=== PATIENT | female | born 1990 | race Caucasian/White ===

== ENCOUNTER 2023-11-27 20:11 | Inpatient (IN) | payer MEDICAID, SELFPAY ==
[2023-11-27 20:18] VITALS: BP 140/82; PULSE 120; O2SAT 95
--- NOTE | 2023-11-27 20:33 | ED_ITS ---
HPI - General Adult General Chief complaint: Psychiatric Symptoms Stated complaint: behavioral Time Seen by Provider: 11/27/23 20:24 History of Present Illness HPI narrative: The patient is a 32-year-old female who was brought to the hospital after running out of gas. Apparently she was driving between [place] and [facility] when she ran out of gas. She was apparently found walking on the highway. State police felt that she seemed very paranoid and had her brought to the hospital. The patient reports that she had a psychiatric hospitalization at [facility] in [facility] about a year ago for similar behaviors. She says she has been on clonidine and gabapentin and propranolol in the past. The patient says that she grew up in [facility] in [place]. Recently she has been living in [place]. She says that she was thinking about moving back to [facility]. When I asked her where she was planning on staying in [facility] she told me that she was planning on staying in [facility]. Apparently when she was speaking to the state police on the highway she told the state assessed properties director that she believes her family was being held hostage. I was later able to speak to the patient's father, Darvin. He tells me that patient had recently been in [facility] visiting him and his . He tells me that he believes the patient has been in a psychiatric crisis for at least a month. He says that she lost a job in [facility] and has been anxious and paranoid. Apparently while in [place] she wanted news about her brother because she was worried her brother was . Apparently her brother is in [place] and they communicated with by phone in video. She apparently insisted that what she was seeing was generated by artificial intelligence. The patient's parents have been encouraging her to seek psychiatric care over the last several weeks and considered trying to get her to an emergency room in [place] over the weekend not go voluntarily and they had been told that unless she was suicidal or homicidal she could not be brought there against her will. The parents tell me that the patient has crushed and snorted Adderall in the past. Related Data Allergies Allergy/AdvReac Type Severity Reaction Status Date / Time No Known Allergies Allergy Verified 11/27/23 20:46 Review of Systems Review of Systems: Yes all other systems are reviewed and are negative Physical Exam ED Vital Signs: Vital Signs - 24 hr 11/27/23 20:46 Temperature 99.3 F Pulse Rate 113 H Respiratory Rate 18 Blood Pressure 148/91 H Pulse Oximetry 95 Oxygen Delivery Method Room Air BMI result Body Mass Index 26.6 Const Other: The patient is awake and alert. She has a very anxious, almost paranoid affect. HENMT Other: Face is symmetrical. Mucous membranes are moist Eyes Other: Pupils are round equal, conjunctivae are clear Neck Other: Moving her neck normally, no neck swelling, no JVD Resp Effort & Inspection: normal respiratory effort Auscultation: clear to auscultation bilaterally Cardio Rate: regular rate Rhythm: regular rhythm Heart sounds: S1 normal heart sound present and S2 normal heart sound present GI Other: Abdomen is soft and nontender Skin Other: Skin is dry and unremarkable. Neuro Other: The patient is awake and alert and fairly well oriented. Her cranial nerves are intact. She moves her extremities with normal strength and coordination. Her gait is steady. She is grossly neurologically intact. Extrem Other: No peripheral edema, no calf swelling or tenderness Psych Other: The patient is reasonably well-kempt. She has an extremely anxious affect. Medications Administered Discontinued Medications Generic Name Dose Route Start Last Admin Trade Name Freq PRN Reason Stop Dose Admin Clonidine HCl 0.1 mg 11/27/23 20:33 11/27/23 20:50 Clonidine Hcl 0.1 Mg Tablet PO 11/27/23 20:34 0.1 mg ONCE ONE Administration Protocol Gabapentin 300 mg 11/27/23 20:33 11/27/23 20:50 Gabapentin 300 Mg Capsule PO 11/27/23 20:34 300 mg ONCE ONE Administration Medical Decision Making Medical Decision Making [facility] Narrative: The patient is a 32-year-old female with a history of a previous psychiatric hospitalization, I believe at [facility] in [facility]. She says that she has been prescribed propranolol, gabapentin, and clonidine in the past. She also says that she has been on other medications that have made her gain weight. She was brought to the hospital after being found on the highway having run out of gas while driving between [place] and [facility]. She was apparently quite paranoid with state troopers, talking about her family being held hostage. I suspect that she has some underlying psychotic disorder. She seems quite disorganized. I spoke with the patient's parents who live in [facility]. They have been very concerned about her mental health and are very eager that she receive mental health treatment. They are aware that the patient has been resistant to receive mental health treatment and they say that the patient has a history of pulling herself together sufficiently to give the appearance of more stability than she really has. The patient was brought here on a section 12 and will be maintained on a section 12 for a care team evaluation. Medical testing is still underway. I do not have a high suspicion for any acute medical process. I will be signing the patient out to the oncoming physicians and placing the patient in physician observation care. Lab Data Labs: Lab Results 11/27/23 Range/Units 21:07 Urine Color Yellow Urine Appearance Cloudy Urine pH 5.5 (5.0-9.0) Ur Specific [place] 1.010 (1.005-1.025) Urine Protein 30 (1+) H (Neg-Trace) mg/dL Urine Glucose (UA) Negative (Negative) mg/dL Urine Ketones Trace (Negative) mg/dL Urine Blood Large (3+) H (Negative) Urine Nitrite Negative (Negative) Ur Leukocyte Esterase Small (1+) H (Negative) Urine Test NEGATIVE (NEGATIVE) Urine Opiates Screen Not Detected (Not Detect) Urine Fentanyl Screen Not Detected (Not Detect) Ur Barbiturates Screen Not Detected (Not Detect) Ur Phencyclidine Scrn Not Detected (Not Detect) Ur Amphetamines Screen POSITIVE H (Not Detect) U Benzodiazepines Scrn Not Detected (Not Detect) Urine Cocaine Screen Not Detected (Not Detect) U Marijuana (THC) Screen POSITIVE H (Not Detect) Discharge Plan Discharge Clinical Impression: Psychotic disorder Patient Disposition: Still a Patient Interventions: [place]-Suicide Risk Severity Scale Last Done: 11/27/23 21:23
[2023-11-27 20:46] VITALS: BP 148/91; PULSE 113; RESP 18; TEMP 37.4; O2SAT 95; BMI 26.6
--- NOTE | 2023-11-27 20:48 | PC.NURSE ---
mother [phone] jamison. dad leigh ann [phone]
[2023-11-27] MEDS: cloNIDine HCL 0.1 MG TABLET PO (20:50)
[2023-11-27] MEDS: Gabapentin 300 MG CAPSULE PO (20:50)
--- NOTE | 2023-11-27 21:01 | PC.NURSE ---
Patient's Mom's Phone # from EMS: Rachel Pickering [phone]
[2023-11-27 21:15] LABS: Appearance Urine Cloudy; Color Urine Yellow; Glucose Urine UA Negative (Negative); Leukocyte Esterase Urine Small (1+) (Negative); Nitrite Urine Negative (Negative); PH 5.5 (5.0-9.0); UMIC TRIGGER UACC YES; Urine Blood Large (3+) (Negative); Urine Ketones Trace mg/dL (Negative); Urine Protein 30 (1+) mg/dL (Neg-Trace)
[2023-11-27 21:16] LABS: UPreg QC Valid YES; Urine Pregnancy NEGATIVE (NEGATIVE)
[2023-11-27 21:22] LABS: Amphetamine Screen Urine POSITIVE (Not Detect); Barbiturates, Urine Not Detected (Not Detect); Benzodiazepines Screen Urine Not Detected (Not Detect); Cannabinoid Screen Urine POSITIVE (Not Detect); Cocaine Screen Urine Not Detected (Not Detect); Fentanyl, urine Not Detected (Not Detect); Opiate Screen Urine Not Detected (Not Detect); Phencyclidine Screen Urine Not Detected (Not Detect)
[2023-11-27 21:35] LABS: Bacteria Urine 1+ (None Seen); RBC Urine 0-2 /HPF (0-2); UACC Culture Trigger YES
[2023-11-27 22:05] LABS: Basophils Absolute Auto 0.1 X10*3/uL (0.0-0.2); Basophils Percent Auto 0.4 % (0-2); Eosinophils Percent Auto 0.3 % (0-4); Hematocrit 40.1 % (37.0-47.0); Hemoglobin 14.2 g/dl (12.0-16.0); Imm Gran Abs Auto 0.06 X10*3/uL (0.00-0.03); Imm Gran Pct Auto 0.4 % (0.0-0.4); Lymphocytes Absolute Auto 1.8 X10*3/uL (1.2-4.9); Lymphocytes Percent Auto 13.1 % (20-40); MANUAL DIFF FLAG NO; Mean Corpuscular HGB Conc 35.4 g/dl (31.0-35.0); Mean Corpuscular Hemoglobin 30.5 pg (27.0-33.0); Mean Corpuscular Volume 86.2 fL (80.0-98.0); Mean Platelet Volume 10.1 fL (9.4-12.3); Monocytes Absolute Auto 0.9 X10*3/uL (0.1-1.2); Monocytes Percent Auto 6.8 % (2-11); Neutrophils Absolute Auto 10.9 x10*3/uL (2.0-8.3); Platelet Count 273 X10*3/uL (160-400); Red Blood Count 4.65 X10*6/uL (4.20-5.50); Red Cell Distribution Width 12.9 % (11.0-16.0); White Blood Count 13.8 X10*3/uL (4.8-10.8)
[2023-11-27] MEDS: Nicotine Polacrilex 2 MG GUM BUCCAL (22:15)
[2023-11-27 22:23] LABS: Acetaminophen LAB < 3 mcg/mL (<30); Salicylate < 5.0 mg/dL (15-30)
[2023-11-27 22:27] LABS: Anion Gap 12 (12-20); Blood Urea Nitrogen 9 mg/dL (9-16); Calcium 9.5 mg/dL (8.4-10.2); Carbon Dioxide 23 mmol/L (22-29); Chloride 109 mmol/L (96-108); Creatinine Clr Calc Pharmacy 100.5; Estimated Glomerular Filt Rate > 60; Ethanol < 10 mg/dL; Glucose Random 101 mg/dL (60-115); Potassium 3.7 mmol/L (3.3-5.1); Sodium 140 mmol/L (135-145)
[2023-11-27 22:44] LABS: HCG Quantitative < 2 mIU/mL; Thyroid Stimulating Hormone 1.13 uIU/mL (0.32-4.0)
[2023-11-27] MEDS: QUEtiapine Fumarate 50 MG TABLET PO (23:21)
--- NOTE | 2023-11-27 23:56 | PC.NURSE ---
patient pacing in [place], had said f you to all the staff, tries to engage staff in attention seeking interactions im scared you tricked me testing doors to see if theyre open, about 15 minutes ago was approached by clinician and stated that she was scred of him and declined to process further. t/w redirected patient that additional swearing at staff would not result in this staff making efforts for client, that more respectful behavior would be rewarded.
[2023-11-28] MEDS: Nicotine Polacrilex 2 MG GUM BUCCAL ×4 (00:15→17:15)
--- NOTE | 2023-11-28 00:25 | PC.NURSE ---
continues to engage in negative attention seeking behavior, pacing and saying i hate myself
--- NOTE | 2023-11-28 00:36 | MHC.CARE ---
CARE Team attempted to meet with the pt and complete an assessment. Pt was nervous to have this conversation and even asked the RN and Tech what t/w role was at the hospital. Pt finally agreed to the assessment as long as she could pace. T/W stated that this was fine. Pt stated that she was from [facility] but that she had been living in [place] for the past 15 years or so. *Please note that the pt was brought into [facility] ED by state police due to the pt running out of gas on the highway and then deciding to walk on the highway. She was headed for [facility] to see her parents.* T/W asked why she was headed back to [place] and she stated that her parents are being held hostage and that she needed to get there to help them. T/W asked when the last time she spoke to her family was and she stated that she spoke to her mother and father one hour prior to this interaction. But the bad men made them lie. They are not okay . T/W asked a challenge question, Do you have proof that they were taken? , and the pt got upset and said that she did not feel safe anymore and that she would not continue the conversation. The pt has been to [place] in [facility] before, although it is unclear how long ago. Due to the late hour of this assessment, a collateral was not made as this assessment could not be completed.
--- NOTE | 2023-11-28 09:49 | PC.NURSE ---
Attempting to complete med rec based on claim history and pt reports. pt reports she takes 300mg Gabapentin TID (this has not been filled since a 90 day supply in may), pt reports she also takes seroquel 25 mg at bedtime (this has not been filled since may for a 30 day supply). pt reports taking Vyvance 40 PO AM which is in her claim hx as well as Clonidine 0.2mg PO at bedtime which is also in her claim history. pt denies taking any vitamins at this time reached out to [facility] in the Pharmacy for further assistance.
[2023-11-28] MEDS: LORazepam 1 MG TABLET 2 MG PO ×2 (10:02→17:16)
--- NOTE | 2023-11-28 10:03 | PC.NURSE ---
pt spoke with CARE team
[2023-11-28 10:33] VITALS: BP 114/80; PULSE 81; RESP 16; TEMP 37.1; O2SAT 97
[2023-11-28] MEDS: Ibuprofen 400 MG TABLET PO (11:58)
--- NOTE | 2023-11-28 13:32 | MHC.CARE ---
CARE Team received a follow up call from Pts psychiatrist; Dr. Pérez who reported that Pt has engaged in treatment since July 2023. He reported she has been relatively stable since this time. Pt was admitted psychiatrically over the summer and once stabilized stopped taking all psychiatrist medication. When he initially started working with Pt she was presenting with ADHD symptoms and anxiety. Pt had no notable psychotic symptoms. He reported that he wanted to keep Pt engaged in treatment so he did not restart antipsychotics. He reported he would like to be involved in discharge planning.
[2023-11-28 20:12] VITALS: BP 105/60; PULSE 79; RESP 18; TEMP 36.9; O2SAT 98
[2023-11-28] MEDS: QUEtiapine Fumarate 25 MG TABLET PO (20:17)
--- NOTE | 2023-11-28 21:37 | PC.NURSE ---
Addendum entered by Sophie Cheng 11/28/23 22:06: Pt denies SI/HI/AH/VH. Original Note: This movie writer assumed care of this Pt at 1900. Pt calm and cooperative, pacing around unit, asking same questions to multiple staff members, easily redirectable. Pt given food and PO fluids per MAR. Pt medicated per NOV.
[2023-11-28 21:40] VITALS: BP 131/71; PULSE 84; RESP 16; O2SAT 96
[2023-11-28] MEDS: cloNIDine HCL 0.2 MG TABLET PO (22:02)
[2023-11-29 01:32] VITALS: BP 106/66; PULSE 82; RESP 16; TEMP 36.4; O2SAT 97
--- NOTE | 2023-11-29 01:39 | PC.NURSE ---
MHT notified t/w about Pt right hand bruising. On contact Pt has right inner wrist dark purple bruising, Pt states I think it happened while I was being detained by police or maybe while walking my dog, the leash got tangled . Pt also has scabbed scratches down right leg.
[2023-11-29] MEDS: LORazepam 1 MG TABLET 2 MG PO ×4 (01:48→22:27)
[2023-11-29 06:52] LABS: COVID-19 Test Negative (Negative); IDNOW Serial# 6674DD1D
--- NOTE | 2023-11-29 09:01 | ECG_ITS ---
Test Reason : IPLOC Blood Pressure : / mmHG Vent. Rate : 073 BPM Atrial Rate : 073 BPM P-R Int : 164 ms QRS Dur : 090 ms QT Int : 414 ms P-R-T Axes : 049 036 024 degrees QTc Int : 456 ms Normal sinus rhythm RSR' or QR pattern in V1 suggests right ventricular conduction delay Cannot rule out Anterior infarct , age undetermined Abnormal ECG No previous ECGs available Referred By: Piotr Muñiz Electronically Signed By:ALBERTO FISHER MD
[2023-11-29] MEDS: Nicotine Polacrilex 2 MG GUM BUCCAL ×5 (10:04→23:11)
--- NOTE | 2023-11-29 10:06 | PC.NURSE ---
assumed care of pt at 0700. pt sleeping soundly initially, woke up about 30 minutes ago. pt appears to be anxious and is asking to be discharged. pt told that she needs to be re-evaluated by the care team first. pt pacing hallway, asking for nicorette gum and something for anxiety , still asking to leave. pt told that she has to stay here until she is approved to be let go by care team/provider. pt compliant. pt medicated per nov. plan of care ongoing.
--- NOTE | 2023-11-29 12:20 | MHC.CARE ---
CARE Team left VM with Pts mother to update her on plan of care
[2023-11-29 12:55] VITALS: BP 111/58; PULSE 88; RESP 16; TEMP 36.9; O2SAT 97
--- NOTE | 2023-11-29 13:45 | PC.ADMIT ---
pt arrived on the unit via wheelchair, on a CV, at 1250. Pt safety check was performed, vitals recorded, and paperwork/menus completed, and information packet given. Pt was oriented to the unit. Per crisis eval: Pt is a 32 year old single ? woman of [place] descent? who presented to [facility] via state police after Pt called 911 due to her car breaking down and needing help. Upon state police arrival Pt was making bizarre statements stating she was afraid of being kidnapped and the police were going to harm her. Pt then attempted to run into traffic with her dog. Pt is unknown to the care team or [facility] from prior interventions. Pt was referred to the CARE Team upon medical clearance for treatment recommendations. CARE Team spoke with Pts parents who report Pt has long standing mental health interventions. Pt parents are considered related to her mental health? stability and believe she is in crisis. Pt left their parents? home on Monday, Pt made a statement of wanting to harm herself at some point during her visit. Per Pt reports she left [place] on Monday and spent the night in a hotel? but unable to recall where. She reported she decided she wanted to go back to [place] yesterday instead of returning to [place]. On her way back? to [place], ran out of gas and was just trying to take her dog to pee. She called 911 for help and they brought her here.? During admission pt is tearful and distraught. Pt reports her dog is a rescue and is stuck in the pound and she is worried that he will think she deserted the dog. Pt also reports she has no family or supports in the area and is worried about how to handle her dog and car because, my car isn't registered . Pt signed a 3day notice and is resting comfortably in her room
[2023-11-29] MEDS: Gabapentin 300 MG CAPSULE PO ×2 (16:15→21:45)
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
[2023-11-29] MEDS: cloNIDine HCL 0.1 MG TABLET PO (16:20)
[2023-11-29 16:21] VITALS: BP 116/63
[2023-11-29] MEDS: cloNIDine HCL 0.2 MG TABLET PO (21:45)
[2023-11-29 21:46] VITALS: BP 128/98; PULSE 75; RESP 16
[2023-11-29] MEDS: QUEtiapine Fumarate 50 MG TABLET PO (23:06)
[2023-11-30 08:00] VITALS: BP 105/55; PULSE 62; RESP 14; TEMP 36; O2SAT 97
[2023-11-30] MEDS: Gabapentin 300 MG CAPSULE PO ×4 (11:02→21:16)
[2023-11-30] MEDS: LORazepam 1 MG TABLET 2 MG PO ×3 (11:03→23:03)
[2023-11-30] MEDS: Nicotine Polacrilex 2 MG GUM BUCCAL ×2 (11:03→13:50)
[2023-11-30] MEDS: cloNIDine HCL 0.1 MG TABLET PO ×2 (12:19→15:58)
[2023-11-30 12:21] VITALS: BP 125/78; PULSE 94
[2023-11-30 13:37] VITALS: BMI 26.6
[2023-11-30] MEDS: Nicotine 21 MG PATCH.TD24 TRANSDERMA (14:58)
[2023-11-30] MEDS: Nicotine Polacrilex 2 MG GUM 4 MG BUCCAL ×2 (17:09→23:00)
[2023-11-30 18:00] VITALS: BP 103/56; PULSE 95; RESP 18; TEMP 36.4; O2SAT 98
[2023-11-30] MEDS: cloNIDine HCL 0.2 MG TABLET PO (21:16)
[2023-11-30] MEDS: QUEtiapine Fumarate 100 MG TABLET PO (21:16)
[2023-12-01 08:03] VITALS: BP 102/56; PULSE 61; RESP 16; TEMP 36; O2SAT 98
[2023-12-01] MEDS: Gabapentin 300 MG CAPSULE PO ×4 (09:19→19:23)
[2023-12-01] MEDS: Nicotine 21 MG PATCH.TD24 TRANSDERMA (09:29)
[2023-12-01] MEDS: LORazepam 1 MG TABLET 2 MG PO ×3 (09:30→23:06)
[2023-12-01] MEDS: cloNIDine HCL 0.1 MG TABLET PO ×3 (10:22→22:43)
[2023-12-01 10:23] VITALS: BP 119/65
[2023-12-01] MEDS: Nicotine Polacrilex 2 MG GUM 4 MG BUCCAL ×5 (10:23→23:45)
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
[2023-12-01 18:00] VITALS: BP 168/98; PULSE 96; RESP 18
[2023-12-01] MEDS: cloNIDine HCL 0.2 MG TABLET PO (19:23)
[2023-12-01] MEDS: QUEtiapine Fumarate 100 MG TABLET PO (19:23)
--- NOTE | 2023-12-01 19:24 | PC.NURSE ---
HS Medications given earlier per Nataliya Gayle for increased agitation.
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
[2023-12-01] MEDS: LORazepam 1 MG TABLET PO (20:38)
[2023-12-02] VITALS (7 sets, daily range): BP systolic 100–113; BP diastolic 58–69; PULSE 72–93; RESP 16–18; TEMP 36.2–36.7; O2SAT 95–97
[2023-12-02] MEDS: OLANZapine 10 MG VIAL IM (00:44)
[2023-12-02] MEDS: Midazolam HCl/PF 2 MG/2 ML VIAL IM (00:45)
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
--- NOTE | 2023-12-02 08:50 | PC.NURSE ---
pt refused 7am vitals
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
[2023-12-02] MEDS: LORazepam 1 MG TABLET PO (13:17)
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
[2023-12-02] MEDS: Nicotine 21 MG PATCH.TD24 TRANSDERMA (13:29)
[2023-12-02] MEDS: Nicotine Polacrilex 2 MG GUM 4 MG BUCCAL ×4 (13:29→21:49)
[2023-12-02] MEDS: cloNIDine HCL 0.1 MG TABLET PO (15:56)
[2023-12-02] MEDS: Gabapentin 300 MG CAPSULE PO ×2 (15:57→19:38)
[2023-12-02] MEDS: LORazepam 0.5 MG TABLET PO (16:28)
[2023-12-02] MEDS: LORazepam 0.5 MG TABLET 1.5 MG PO (19:31)
[2023-12-02] MEDS: cloNIDine HCL 0.2 MG TABLET PO (19:37)
[2023-12-02] MEDS: OLANZapine ODT 10 MG TAB.RAPDIS TRANSLINGU (22:26)
[2023-12-02] MEDS: QUEtiapine Fumarate 50 MG TABLET 150 MG PO (23:50)
[2023-12-03 08:13] LABS: Cholesterol 164 mg/dL (<200); HDL Cholesterol 28 mg/dL (>40); LDL Cholesterol Calculated 75 mg/dL (<100); Magnesium 2.1 mg/dL (1.6-2.6); Triglycerides 307 mg/dL (<150)
[2023-12-03 08:14] LABS: Estimated Average Glucose 97 mg/dL
[2023-12-03 08:42] VITALS: BP 106/62; PULSE 78; RESP 16; TEMP 36.8; O2SAT 99
[2023-12-03 08:44] LABS: Folate 7.4 ng/mL (> or = 4.0); Vitamin B12 459 pg/mL (200-900)
[2023-12-03] MEDS: LORazepam 0.5 MG TABLET 1.5 MG PO ×3 (08:53→23:04)
[2023-12-03] MEDS: Nicotine 21 MG PATCH.TD24 TRANSDERMA (08:53)
[2023-12-03] MEDS: Gabapentin 300 MG CAPSULE PO ×4 (08:53→20:31)
[2023-12-03] MEDS: Nicotine Polacrilex 2 MG GUM 4 MG BUCCAL ×4 (08:53→23:02)
[2023-12-03] MEDS: cloNIDine HCL 0.1 MG TABLET PO ×2 (08:55→17:05)
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
[2023-12-03 17:05] VITALS: BP 175/70; PULSE 87; TEMP 36.3
[2023-12-03 20:25] VITALS: BP 108/55; PULSE 76; TEMP 36.3
[2023-12-03] MEDS: cloNIDine HCL 0.2 MG TABLET PO (20:31)
[2023-12-03] MEDS: QUEtiapine Fumarate 50 MG TABLET 150 MG PO (20:32)
[2023-12-03] MEDS: traZODone HCL 50 MG TABLET PO (23:02)
--- NOTE | 2023-12-04 08:09 | HO.PSYCHPN ---
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 Total time managing care of this patient today ____ minutes.
[2023-12-04 09:25] VITALS: BP 110/69; PULSE 94; RESP 18; TEMP 36.6; O2SAT 99
[2023-12-04] MEDS: Nicotine 21 MG PATCH.TD24 TRANSDERMA (09:27)
[2023-12-04] MEDS: Gabapentin 300 MG CAPSULE PO ×4 (09:27→20:30)
[2023-12-04] MEDS: LORazepam 0.5 MG TABLET 1.5 MG PO ×3 (09:27→20:31)
[2023-12-04] MEDS: cloNIDine HCL 0.1 MG TABLET PO ×3 (09:28→19:00)
[2023-12-04] MEDS: Nicotine Polacrilex 2 MG GUM 4 MG BUCCAL ×5 (10:53→22:51)
--- NOTE | 2023-12-04 11:45 | PC.NURSE ---
Pt declined to complete/turn in a debriefing form for the 12/02/23 restraint event.
[2023-12-04] MEDS: HaloperidoL 0.5 MG TABLET 2.5 MG PO (13:55)
[2023-12-04 13:57] VITALS: BP 118/68; PULSE 80; RESP 18
--- NOTE | 2023-12-04 15:49 | PC.NURSE ---
Pt refused second attempt to complete restraint debriefing form.
[2023-12-04 18:00] VITALS: BP 106/62; PULSE 78; RESP 18; O2SAT 99
[2023-12-04] MEDS: cloNIDine HCL 0.2 MG TABLET PO (20:31)
[2023-12-04] MEDS: HaloperidoL 5 MG TABLET PO (20:31)
[2023-12-04] MEDS: QUEtiapine Fumarate 50 MG TABLET 150 MG PO (22:51)
[2023-12-04] MEDS: diphenhydrAMINE HCL 25 MG CAPSULE 50 MG PO (22:51)
[2023-12-05 09:37] VITALS: BP 107/70; PULSE 74; RESP 16; TEMP 36.6; O2SAT 98
[2023-12-05] MEDS: cloNIDine HCL 0.1 MG TABLET PO ×2 (10:16→12:58)
[2023-12-05] MEDS: Nicotine 21 MG PATCH.TD24 TRANSDERMA (10:16)
[2023-12-05] MEDS: LORazepam 0.5 MG TABLET 1.5 MG PO ×3 (10:16→20:34)
[2023-12-05] MEDS: Gabapentin 300 MG CAPSULE PO ×4 (10:16→20:34)
[2023-12-05] MEDS: HaloperidoL 5 MG TABLET PO (10:16)
[2023-12-05] MEDS: Nicotine Polacrilex 2 MG GUM 4 MG BUCCAL ×4 (10:17→20:38)
[2023-12-05] MEDS: Albuterol Sulfate 90 MCG 8 GM INHALER 2 PUFF INHALE ×2 (10:44→20:55)
[2023-12-05 12:56] VITALS: BP 118/62; PULSE 68
[2023-12-05] MEDS: OLANZapine ODT 10 MG TAB.RAPDIS TRANSLINGU (13:12)
[2023-12-05] MEDS: Ziprasidone 20 MG CAPSULE PO (15:12)
[2023-12-05 18:45] VITALS: BP 125/60; PULSE 80; RESP 16; TEMP 36.4; O2SAT 96
[2023-12-05] MEDS: Acetaminophen 325 MG TABLET 650 MG PO (20:34)
[2023-12-05] MEDS: cloNIDine HCL 0.2 MG TABLET PO (20:34)
[2023-12-05] MEDS: traZODone HCL 50 MG TABLET PO (20:34)
[2023-12-05] MEDS: diphenhydrAMINE HCL 25 MG CAPSULE 50 MG PO (20:34)
[2023-12-05] MEDS: QUEtiapine Fumarate 50 MG TABLET 150 MG PO (20:34)
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
[2023-12-06] MEDS: Magnesium Hydrox/Alum Hydrox 30 ML ORAL.SUSP PO (00:46)
[2023-12-06] MEDS: Albuterol Sulfate 90 MCG 8 GM INHALER 2 PUFF INHALE ×2 (08:07→21:47)
--- NOTE | 2023-12-06 09:02 | P.PNPSI_ITS ---
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 patient says she can not tolerate DC Haldol patient says she can not tolerate continue Seroquel to 150 mg q.h.s. Continue gabapentin 300 mg t.i.d. and add gabapentin 300 mg as a p.r.n. for anxiety Will continue Ativan 1.5 mg q.6 p.r.n. for anxiety; likely helped resolve pilo; patient willing to try antipsychotic if Ativan remains available Continue clonidine 0.2 mg q.h.s. Added clonidine 0.1 mg q.4 p.r.n. for anxiety HOLD stimulant medication Pt refused labs for HBA1C/Lipids Will reach out to patient's outpatient credit underwriter Dr. Rafael Pérez Patient educated on: diagnosis and medication risk/benefits Informed Consent: understands, does not understand and further education needed Reason for continued inpatient stay Substantial Risk for: rapid decompensation Time Spent With Patient Time: Total time managing care of this patient today ____ minutes.
[2023-12-06 09:53] VITALS: BP 126/60; PULSE 87; RESP 16; TEMP 36.2; O2SAT 97
[2023-12-06] MEDS: Nicotine Polacrilex 2 MG GUM 4 MG BUCCAL ×5 (09:55→20:14)
[2023-12-06] MEDS: Gabapentin 300 MG CAPSULE PO ×4 (09:55→20:10)
[2023-12-06] MEDS: Ziprasidone 20 MG CAPSULE PO (09:55)
[2023-12-06] MEDS: LORazepam 0.5 MG TABLET 1.5 MG PO ×3 (09:56→21:30)
[2023-12-06] MEDS: cloNIDine HCL 0.1 MG TABLET PO ×2 (09:56→16:47)
[2023-12-06] MEDS: Nicotine 21 MG PATCH.TD24 TRANSDERMA (09:56)
[2023-12-06 16:45] VITALS: BP 127/77; PULSE 86; RESP 16; TEMP 36.5; O2SAT 98
[2023-12-06] MEDS: cloNIDine HCL 0.2 MG TABLET PO (20:10)
[2023-12-06] MEDS: traZODone HCL 50 MG TABLET PO (20:11)
[2023-12-06] MEDS: OXcarbazepine 150 MG TABLET PO (20:11)
[2023-12-06] MEDS: QUEtiapine Fumarate 50 MG TABLET 150 MG PO (20:11)
[2023-12-07] MEDS: diphenhydrAMINE HCL 25 MG CAPSULE 50 MG PO ×2 (02:49→23:00)
[2023-12-07] MEDS: Ibuprofen 400 MG TABLET PO (02:49)
[2023-12-07] MEDS: Milk of Magnesia 30 ML ORAL.SUSP PO ×2 (04:55→23:01)
[2023-12-07] MEDS: cloNIDine HCL 0.1 MG TABLET PO ×2 (04:55→14:47)
[2023-12-07] MEDS: Albuterol Sulfate 90 MCG 8 GM INHALER 2 PUFF INHALE (04:57)
[2023-12-07 04:58] VITALS: BP 115/65; PULSE 83
[2023-12-07 07:00] VITALS: BMI 28.1
[2023-12-07] MEDS: Nicotine Polacrilex 2 MG GUM 4 MG BUCCAL ×5 (09:37→21:52)
[2023-12-07] MEDS: Nicotine 21 MG PATCH.TD24 TRANSDERMA (09:37)
[2023-12-07] MEDS: LORazepam 0.5 MG TABLET 1.5 MG PO (09:38)
[2023-12-07] MEDS: OXcarbazepine 150 MG TABLET PO ×2 (09:38→12:46)
[2023-12-07] MEDS: Gabapentin 300 MG CAPSULE PO ×4 (09:44→19:15)
[2023-12-07 13:33] VITALS: BP 108/71; PULSE 87
[2023-12-07] MEDS: diazePAM 5 MG TABLET PO ×2 (16:00→19:14)
--- NOTE | 2023-12-07 16:58 | P.PNPSI_ITS ---
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 calmly, no apparent medication side effect, akathisia and has been calmly resting all day. She does not want to continue but is willing to try another antipsychotic, ziprasidone which was discussed earlier. Again discussed Ativan which patient grudgingly accepts will not be continued at this dose on discharge. She maintains she definitely wants to continue getting help as an outpatient, with both medication management and therapy 12/05 Patient said she did not sleep very much last night. She expresses that she is upset that radio script writer encouraged her to try ziprasidone, which she says is causing her to feel like jumping out of her skin, that she can not walk, she can not think and she does not like it. Of note, patient has no symptoms/signs of akathisia and has been observed throughout the day to be walking just fine. Patient said she just wants to go and pursue treatment as an outpatient with her pending psychiatric appointment this coming Monday. Patient says she misses her dog, wants to be outside, and wants to go. African History Professor discussed options and patient said she is able to get a ride from her aunt who will pick her up, take her to get her dog and her car; social work able to confirm this. African History Professor agreed that if she continues to remain in good behavioral control, will proceed with discharge. Later patient came up to radio script writer and said she was feeling better now that the ziprasidone was becoming less and less in her system. She asked radio script writer if she could get back on Trileptal, saying she had been on in the past and that it was helpful, to which radio script writer agreed. -as this medication can be used for mood stability and sometimes for bipolar disorder this will hopefully be somewhat of a stabilizing medication -although initially irritable regarding medication, patient continues to remain in good behavioral and impulse control. No expressed paranoid delusions (though likely they remain) -while patient remains with poor insight, she is on both Trileptal and Seroquel which can help with mood stabilization and Seroquel with psychotic symptoms. She has outpatient provider appointment pending and has set up for her aunt who lives in the same town and is supportive, to help her get her belongings and get back home. Patient wants to discharge this Monday. Given her poor insight and chronic symptoms, it is likely that she will again at some point decompensate; however at this time she does not appear to be in imminent risk for harm to self or others. Will continue to monitor but if remains stable, will proceed with discharge planned for Monday. 12/06 This morning, radio script writer met with patient who said she again did not sleep last night because she was having intrusive thoughts... And that despite this, she is not tired at all; however she quickly adds but I am not bipolar. She continues to very much want to discharge tomorrow, which is the plan and which social work and radio script writer have confirmed with her family, mother and aunt. Discussed medications and that benzodiazepines would be tapered off which she said she understood. Although she did not sleep much, staff from yesterday evening and overnight continue report that she is remained in good behavioral and impulse control, not expressing any paranoid delusions. Later in the afternoon...patient came to radio script writer again and said that she is feeling very anxious, with congruent affect, and could she be switched to Valium since it is longer acting and would be better than the abrupt experience she is having with Ativan. African History Professor agreed and switched her to Valium as it will likely be and easier, more gentle taper that she can follow post discharge. Still Later that afternoon.. Patient had what appeared to be an upsetting phone call with her mother. Patient came up to radio script writer in the hallway, anxious, very concerned, tearful and asked Is my father alive? Is he a live on this earth? Tell me the truth... Of course radio script writer answered. She then started asking about what is going on here with this FBI... Worries that the KYLE... African History Professor tried to explain this is only a hospital and that there is no FBI or KYLE involved however patient did not believe radio script writer and then said something about she could see Shivani evans outside the window... Patient again became tearful and asked radio script writer, So you are saying I am not going to be killed? You mean I am not going to be taken somewhere and tortured? She very much wanted to know if someone was waiting to abduct her for torture. Patient then became quite tearful and said My parents are planning to kill themselves... When radio script writer challenged this idea saying it was just a paranoid thought, she responded with It is either that or My parents want me to kill myself so they can enjoy their life... Is that true? Do my parents want me to kill myself so they can enjoy their life? African History Professor tried to inquire further if this was at all plan of hers to which she said no and that she had no plans at all to hurt herself but that she was worried that is what her parents wanted. Patient expressed her dilemma and said she wants to go tomorrow and get her dog but she needs someone to cook for her and to clean for her and to take care of her so she does not know what to do... Patient then brought up some names of people from her past and insisted that this radio script writer was related to them that it was either this radio script writer's brother or son or cousin and would not accept radio script writer's explanation to the contrary... She confirmed that this radio script writer was going to prescribe Valium for [her] for the rest of [her] life but radio script writer again explained this was not the case and again explained the taper. African History Professor discussed this with staff who said they would monitor through the evening and overnight to see how she did. Patient remained stable for the past 6 days, in relatively good behavioral and impulse control and only expressing paranoid delusions if radio script writer specifically inquired. Throughout the day today patient has also remained in good behavioral and impulse control, organized and appropriate. It is not clear what triggered this psychotic outburst. African History Professor decided to postpone discharge so the patient could remain on the unit another day to make sure she was stable for discharge; discussed with patient's aunt who agreed to come pick her up on Monday instead. PLAN: 3 day notice Q 15 minute checks Continue Trileptal 150 mg b.i.d. DC ziprasidone patient says she can not tolerate DC Haldol patient says she can not tolerate continue Seroquel to 150 mg q.h.s. Continue gabapentin 300 mg t.i.d. and add gabapentin 300 mg as a p.r.n. for anxiety Will continue Ativan 1.5 mg q.6 p.r.n. for anxiety; likely helped resolve pilo; patient willing to try antipsychotic if Ativan remains available Continue clonidine 0.2 mg q.h.s. Added clonidine 0.1 mg q.4 p.r.n. for anxiety HOLD stimulant medication Pt refused labs for HBA1C/Lipids Will reach out to patient's outpatient radio script writer Dr. Rafael Pérez Patient educated on: diagnosis and medication risk/benefits Informed Consent: understands, does not understand and further education needed Reason for continued inpatient stay Substantial Risk for: rapid decompensation Time Spent With Patient Time: Total time managing care of this patient today ____ minutes.
[2023-12-07 17:40] VITALS: BP 159/97; PULSE 91; TEMP 36.9; O2SAT 95
[2023-12-07] MEDS: cloNIDine HCL 0.2 MG TABLET PO (19:14)
[2023-12-07] MEDS: OXcarbazepine 300 MG TABLET PO (19:14)
[2023-12-07] MEDS: QUEtiapine Fumarate 50 MG TABLET 150 MG PO (19:14)
[2023-12-07] MEDS: OLANZapine ODT 10 MG TAB.RAPDIS TRANSLINGU (23:34)
[2023-12-08] MEDS: Albuterol Sulfate 90 MCG 8 GM INHALER 2 PUFF INHALE ×2 (00:07→21:10)
[2023-12-08] MEDS: Nicotine Polacrilex 2 MG GUM 4 MG BUCCAL ×6 (00:27→21:10)
[2023-12-08 08:10] VITALS: RESP 18
[2023-12-08] MEDS: diazePAM 5 MG TABLET PO ×3 (09:00→20:09)
[2023-12-08] MEDS: OXcarbazepine 300 MG TABLET PO ×2 (09:00→20:08)
[2023-12-08] MEDS: Gabapentin 300 MG CAPSULE PO ×4 (09:01→20:08)
[2023-12-08] MEDS: Nicotine 21 MG PATCH.TD24 TRANSDERMA (09:01)
[2023-12-08] MEDS: cloNIDine HCL 0.1 MG TABLET PO ×3 (09:25→17:45)
[2023-12-08 09:27] VITALS: BP 112/58; PULSE 81; RESP 18; TEMP 36.3; O2SAT 99
--- NOTE | 2023-12-08 14:27 | P.DS_ITS ---
DS: Providers Provider Date of Service: 12/10/23 Date of admission: 11/29/23 11:15 Date of discharge: 12/10/23 Primary care physician: Unknown Physician Attending physician on admission: Jesus Romero Attending physician on discharge: Jesus Romero DS: Diagnosis Discharge Diagnosis (1) Amphetamine use disorder, moderate: Status: Acute (2) Schizoaffective disorder, bipolar type: Status: Acute DS: Medications Discharge Medications Home Medications: Previous Rx's Medication Instructions Recorded albuterol sulfate 90 mcg/actuation 2 puff inhalation Q4H PRN 12/07/23 aerosol inhaler (Ventolin HFA) Shortness Of Breath 30 days #8.5 grams diazepam 5 mg tablet See Rx Instructions .Route 12/07/23 .COMPLEX #25 tabs diphenhydramine HCl 50 mg capsule 50 mg PO BEDTIME PRN insomnia 30 12/07/23 days #30 caps clonidine HCl 0.1 mg tablet 0.1 mg PO BID PRN agitation 30 12/08/23 days #60 tabs clonidine HCl 0.2 mg tablet 0.2 mg PO BEDTIME 30 days #30 tabs 12/08/23 gabapentin 300 mg capsule 300 mg PO QID 30 days #120 caps 12/08/23 nicotine (polacrilex) 4 mg gum 4 mg buccal Q2H 30 days #100 ea 12/08/23 oxcarbazepine 300 mg tablet 300 mg PO BID 30 days #60 tabs 12/08/23 quetiapine 300 mg tablet 300 mg PO BEDTIME 30 days #30 tabs 12/08/23 trazodone 50 mg tablet 50 mg PO BEDTIME PRN Insomnia 30 12/08/23 days #30 tabs Data Data Completed and Pending Completed studies during hospitalization [Text1]: 12/03/23 07:32 Estimat Average Glucose 97 Hemoglobin A1c % 5.0 Magnesium 2.1 Triglycerides 307 H Cholesterol 164 LDL Cholesterol, Calc 75 HDL Cholesterol 28 L Vitamin B12 459 Folate 7.4 11/27/23 Unknown Urine clean catch - Clean Catch Midstream Urine Culture - Final DS: Summary Time Spent with Patient Time attestation: Total time managing care of this patient today ____ minutes. Discharge Plan Discharge Anticipated Discharge Date/Time: 12/10/23 11:30 Patient Disposition: Home, Self-Care Discharge Diagnosis: schizoaffective disorder, bipolar type Referrals: [facility]: Dr. Pérez [Other] - 12/11/23 11:00 am (Hospital Discharge appointment with outpatient psychiatrist) [facility] [Other] - 1 Week (Information for [employer] to retrieve your car from impound) [facility] [Other] - 1 Week (Information for animal boarding to retrieve your dog.) Physician,Unknown J [Primary Care Provider] - 1 Week Discharge Medications: New diazepam 5 mg tablet See Rx Instructions .ROUTE .COMPLEX Qty: 25 0RF Rx Instructions: Take 1 tab 3x a day for 2 day; then take 1 tab 2x a day for 7 days; then take 1 tab a day for 5 days diphenhydramine HCl 50 mg capsule 50 mg PO BEDTIME PRN (Reason: insomnia) 30 Days Qty: 30 0RF albuterol sulfate [Ventolin HFA] 90 mcg/actuation Hfa Aerosol Inhaler 2 puff inhalation Q4H PRN (Reason: Shortness Of Breath) 30 Days Qty: 8.5 0RF nicotine (polacrilex) 4 mg gum 4 mg buccal Q2H 30 Days Qty: 100 0RF clonidine HCl 0.1 mg Tablet 0.1 mg PO BID PRN (Reason: agitation) 30 Days Qty: 60 0RF Protocol: Hold for SBP< HOLD for SBP < : 90 gabapentin 300 mg Capsule 300 mg PO QID 30 Days Qty: 120 0RF oxcarbazepine 300 mg Tablet 300 mg PO BID 30 Days Qty: 60 0RF quetiapine 300 mg Tablet 300 mg PO BEDTIME 30 Days Qty: 30 0RF trazodone 50 mg Tablet 50 mg PO BEDTIME PRN (Reason: Insomnia) 30 Days Qty: 30 0RF Continued clonidine HCl 0.2 mg tablet 0.2 mg PO BEDTIME 30 Days Qty: 30 0RF Discontinued propranolol 20 mg tablet 20 mg PO BID PRN (Reason: Anxiety) lisdexamfetamine [Vyvanse] 40 mg capsule 40 mg PO DAILY cholecalciferol (vitamin D3) [Vitamin D3] 50 mcg (2,000 unit) capsule 50 mcg PO QAM Discharge Orders: Discharge Order (Routine); Ordered 12/10/23 Ordered By: Jesus Romero Diet: Regular diet Activity on Discharge: As tolerated Stand Alone Forms: Patient Portal Discharge page Care Plan Goals: Maintain mood and safe behaviors Take medications as prescribed Continue to pursue sobriety Practice coping skills Continue with outpatient providers and reach out to them as needed Health Concerns: Mood stability and behaviors Sobriety Plan of Treatment: Follow up with your PCP, psychiatric provider and other outpatient providers regarding above concerns Take medications as prescribed Assessment: Risk assessment at time of discharge:? Patient was interviewed prior to discharge and found to be fully oriented and without any SI or HI. Patient has improved insight and judgment and wants to continue treatment. Patient is not in imminent risk of harm to self or others and has a safety plan that includes presenting to the closest ER or calling 911 if feeling unsafe.? Patient has been observed closely by nursing and unit staff throughout admission; patient has not engaged in any behaviors that suggest dangerousness to self or others and has demonstrated appropriate behaviors and impulse control
[2023-12-08 17:46] VITALS: BP 134/76; PULSE 80; RESP 18
[2023-12-08 18:00] VITALS: BP 117/69; PULSE 78; RESP 18; O2SAT 99
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
[2023-12-08] MEDS: cloNIDine HCL 0.2 MG TABLET PO (20:08)
[2023-12-08] MEDS: QUEtiapine Fumarate 300 MG TABLET PO (23:36)
[2023-12-09 08:14] VITALS: RESP 18
[2023-12-09] MEDS: Gabapentin 300 MG CAPSULE PO ×5 (09:42→20:08)
[2023-12-09] MEDS: OXcarbazepine 300 MG TABLET PO ×2 (09:42→20:08)
[2023-12-09] MEDS: diazePAM 5 MG TABLET PO ×4 (09:42→20:08)
[2023-12-09] MEDS: Nicotine 21 MG PATCH.TD24 TRANSDERMA (09:42)
[2023-12-09] MEDS: Nicotine Polacrilex 2 MG GUM 4 MG BUCCAL ×3 (09:43→20:13)
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
[2023-12-09] MEDS: cloNIDine HCL 0.1 MG TABLET PO ×3 (09:48→18:26)
[2023-12-09] MEDS: diazePAM 2 MG TABLET PO (10:57)
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
[2023-12-09] MEDS: Acetaminophen 325 MG TABLET 650 MG PO (15:46)
[2023-12-09] MEDS: Ibuprofen 400 MG TABLET PO (15:46)
[2023-12-09] MEDS: diphenhydrAMINE HCL 25 MG CAPSULE 50 MG PO ×2 (16:08→22:56)
[2023-12-09 17:32] VITALS: BP 112/59; PULSE 80; TEMP 36.9; O2SAT 97
[2023-12-09 18:29] VITALS: BP 126/63; PULSE 86; O2SAT 99
[2023-12-09] MEDS: cloNIDine HCL 0.2 MG TABLET PO (20:08)
[2023-12-09] MEDS: QUEtiapine Fumarate 300 MG TABLET PO (22:56)
[2023-12-10 08:35] VITALS: BP 125/69; PULSE 81; RESP 18; TEMP 36.5; O2SAT 98
[2023-12-10] MEDS: cloNIDine HCL 0.1 MG TABLET PO ×3 (08:36→19:10)
[2023-12-10] MEDS: Gabapentin 300 MG CAPSULE PO ×4 (08:36→20:46)
[2023-12-10] MEDS: diazePAM 5 MG TABLET PO ×4 (08:36→21:19)
[2023-12-10] MEDS: OXcarbazepine 300 MG TABLET PO ×2 (08:36→20:46)
[2023-12-10] MEDS: Nicotine 21 MG PATCH.TD24 TRANSDERMA (08:37)
[2023-12-10] MEDS: Nicotine Polacrilex 2 MG GUM 4 MG BUCCAL ×5 (08:37→23:42)
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
[2023-12-10] MEDS: Ibuprofen 400 MG TABLET PO (13:40)
[2023-12-10] MEDS: diphenhydrAMINE HCL 25 MG CAPSULE 50 MG PO ×2 (14:21→23:40)
[2023-12-10 18:00] VITALS: BP 105/65; PULSE 80; RESP 18; TEMP 36.6; O2SAT 100
[2023-12-10 19:05] VITALS: BP 118/72; PULSE 85
[2023-12-10] MEDS: cloNIDine HCL 0.2 MG TABLET PO (20:46)
[2023-12-10] MEDS: QUEtiapine Fumarate 300 MG TABLET PO (23:07)
[2023-12-10] MEDS: traZODone HCL 50 MG TABLET PO (23:40)
[2023-12-11 09:07] VITALS: BP 117/64; PULSE 86; RESP 18; TEMP 36.4; O2SAT 98
[2023-12-11] MEDS: Nicotine 21 MG PATCH.TD24 TRANSDERMA (09:17)
[2023-12-11] MEDS: Nicotine Polacrilex 2 MG GUM 4 MG BUCCAL ×4 (09:18→22:45)
[2023-12-11] MEDS: Gabapentin 300 MG CAPSULE PO ×4 (09:19→19:50)
[2023-12-11] MEDS: cloNIDine HCL 0.1 MG TABLET PO ×3 (09:19→22:47)
[2023-12-11] MEDS: OXcarbazepine 300 MG TABLET PO ×2 (09:19→19:48)
[2023-12-11] MEDS: diazePAM 5 MG TABLET PO ×3 (09:19→19:50)
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
--- NOTE | 2023-12-11 13:50 | PC.NURSE ---
12/11/23 PT retracted 3-day and resigned a new one. Expires 12/14/23
--- NOTE | 2023-12-11 14:05 | PC.NURSE ---
pt retracted 3 day notice. New 3day notice signed 12/11/23, up on 12/14/23. Provider, UR. & SW aware
[2023-12-11 17:16] VITALS: BP 113/65; PULSE 80; RESP 18; TEMP 37.1; O2SAT 98
[2023-12-11 19:45] VITALS: BP 135/76; PULSE 96; TEMP 2.4; TEMP 36.3
[2023-12-11] MEDS: cloNIDine HCL 0.2 MG TABLET PO (19:47)
[2023-12-11] MEDS: QUEtiapine Fumarate 300 MG TABLET PO (19:48)
[2023-12-11] MEDS: traZODone HCL 50 MG TABLET PO (22:47)
[2023-12-12 09:17] VITALS: BP 112/60; PULSE 69; RESP 16; TEMP 36.4; O2SAT 99
[2023-12-12] MEDS: cloNIDine HCL 0.1 MG TABLET PO ×3 (09:20→23:54)
[2023-12-12] MEDS: OXcarbazepine 300 MG TABLET PO ×2 (09:20→20:13)
[2023-12-12] MEDS: Nicotine 21 MG PATCH.TD24 TRANSDERMA (09:20)
[2023-12-12] MEDS: Gabapentin 300 MG CAPSULE PO ×4 (09:20→20:13)
[2023-12-12] MEDS: Nicotine Polacrilex 2 MG GUM 4 MG BUCCAL ×4 (09:20→20:17)
[2023-12-12] MEDS: diazePAM 5 MG TABLET PO ×3 (09:20→20:12)
[2023-12-12] MEDS: Milk of Magnesia 30 ML ORAL.SUSP PO (10:29)
[2023-12-12 13:40] VITALS: BP 110/81; PULSE 94
[2023-12-12] MEDS: QUEtiapine Fumarate 25 MG TABLET PO (17:04)
[2023-12-12] MEDS: diphenhydrAMINE HCL 25 MG CAPSULE 50 MG PO ×2 (17:04→23:53)
[2023-12-12 18:50] VITALS: BP 113/73; PULSE 87; RESP 16; TEMP 36.7; O2SAT 98
[2023-12-12] MEDS: cloNIDine HCL 0.2 MG TABLET PO (20:12)
[2023-12-12] MEDS: QUEtiapine Fumarate 400 MG TABLET PO (20:12)
[2023-12-12] MEDS: traZODone HCL 50 MG TABLET PO (23:54)
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
[2023-12-13] MEDS: Milk of Magnesia 30 ML ORAL.SUSP PO (00:55)
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
[2023-12-13] MEDS: cloNIDine HCL 0.1 MG TABLET PO ×3 (09:23→18:17)
[2023-12-13] MEDS: polyethylene glycoL 3350 17 GM POWD.PACK PO (09:23)
[2023-12-13] MEDS: diazePAM 5 MG TABLET PO ×3 (09:23→20:27)
[2023-12-13] MEDS: OXcarbazepine 300 MG TABLET PO ×2 (09:23→20:27)
[2023-12-13] MEDS: Gabapentin 300 MG CAPSULE PO ×4 (09:23→20:27)
[2023-12-13] MEDS: Nicotine Polacrilex 2 MG GUM 4 MG BUCCAL ×3 (09:27→22:34)
[2023-12-13] MEDS: Nicotine 21 MG PATCH.TD24 TRANSDERMA (09:27)
[2023-12-13 09:57] VITALS: BP 102/58; PULSE 73; RESP 16; TEMP 36.5; O2SAT 98
[2023-12-13 14:49] VITALS: BP 117/61; PULSE 76
[2023-12-13] MEDS: QUEtiapine Fumarate 25 MG TABLET PO ×2 (15:29→18:17)
[2023-12-13 16:35] VITALS: BP 119/75; PULSE 83; RESP 16; TEMP 36.6; O2SAT 99
[2023-12-13 18:22] VITALS: BP 117/72; PULSE 77; RESP 18
[2023-12-13] MEDS: cloNIDine HCL 0.2 MG TABLET PO (20:27)
[2023-12-13] MEDS: QUEtiapine Fumarate 400 MG TABLET PO (20:27)
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
[2023-12-13] MEDS: Ibuprofen 400 MG TABLET PO (21:11)
[2023-12-13] MEDS: diphenhydrAMINE HCL 25 MG CAPSULE 50 MG PO (21:11)
[2023-12-14] MEDS: traZODone HCL 50 MG TABLET PO (00:04)
[2023-12-14] MEDS: QUEtiapine Fumarate 25 MG TABLET PO ×2 (00:04→08:50)
[2023-12-14] MEDS: Nicotine Polacrilex 2 MG GUM 4 MG BUCCAL ×2 (00:04→08:50)
[2023-12-14] MEDS: diphenhydrAMINE HCL 25 MG CAPSULE 50 MG PO (03:00)
[2023-12-14] MEDS: OXcarbazepine 300 MG TABLET PO (08:50)
[2023-12-14] MEDS: cloNIDine HCL 0.1 MG TABLET PO (08:50)
[2023-12-14] MEDS: Nicotine 21 MG PATCH.TD24 TRANSDERMA (08:50)
[2023-12-14] MEDS: Gabapentin 300 MG CAPSULE PO (08:51)
[2023-12-14] MEDS: diazePAM 5 MG TABLET PO (08:51)
== END 2023-12-14 10:44 | disposition home or self-care (01) | DRG 750 ==
LOC: HO.ED 11-28 08:36 → HO.PM5 11-29 11:25
PROVIDERS: Emergency Medicine; Student in an Organized Health Care Education/Training Program; Admitting Provider Clinical Nurse Specialist Psychiatric/Mental Health, Adult; Emergency Provider Emergency Medicine Emergency Medical Services; Visit Provider Psychiatry & Neurology Psychiatry
DX: F25.0 Schizoaffective disorder, bipolar type (principal); F15.20 Other stimulant dependence, uncomplicated; F17.210 Nicotine dependence, cigarettes, uncomplicated; Z71.6 Tobacco abuse counseling; Z78.1 Physical restraint status; Z20.822 Contact with and (suspected) exposure to COVID-19; Z79.899 Other long term (current) drug therapy
CPT/HCPCS: 36415; 80048; 80061; 80143; 80179; 80307; 81001; 81025; 82607; 82746; 83036; 83735; 84443; 84702; 85025; 87086; 87635; 93005; 99285; J2250; J2359; S9485

== ENCOUNTER → 2023-11-29 09:01 | Outpatient (BNV) | payer SELFPAY | PROVIDERS: Admitting Provider Clinical Nurse Specialist Psychiatric/Mental Health, Adult; Emergency Provider Emergency Medicine Emergency Medical Services; Visit Provider Internal Medicine Cardiovascular Disease | DX: R94.31 Abnormal electrocardiogram [ECG] [EKG] (principal) | CPT/HCPCS: 93010 ==

== ENCOUNTER → 2023-11-29 11:15 | Outpatient (BNV) | payer MEDICAID, SELFPAY | PROVIDERS: Admitting Provider Clinical Nurse Specialist Psychiatric/Mental Health, Adult; Emergency Provider Emergency Medicine Emergency Medical Services; Visit Provider Psychiatry & Neurology Psychiatry | DX: F25.0 Schizoaffective disorder, bipolar type (principal); F15.20 Other stimulant dependence, uncomplicated | CPT/HCPCS: 99222; 99231; 99232; 99239; 99499 ==